=== PATIENT | male | born 1970 | race Caucasian/White ===

== ENCOUNTER 2016-04-15 15:27 | Outpatient (RCR) | payer BC | END 2016-05-29 10:27 | disposition home or self-care (01) | LOC: PT 15:27 | DX: S76.112D Strain of left quadriceps muscle, fascia and tendon, subsequent encounter (principal) ==

== ENCOUNTER → 2017-01-01 | Outpatient (CLI) | payer BC | LOC: PT 08:44 | DX: Z01.818 Encounter for other preprocedural examination (principal); M25.552 Pain in left hip ==

== ENCOUNTER 2017-03-19 08:30 | Outpatient (RCR) | payer BC | END 2017-04-06 | disposition home or self-care (01) | LOC: PT | DX: S76.012D Strain of muscle, fascia and tendon of left hip, subsequent encounter (principal); X58.XXXD Exposure to other specified factors, subsequent encounter ==

== ENCOUNTER → 2017-09-10 | Outpatient (CLI) | payer BC | LOC: RAD 09:25 | DX: M25.512 Pain in left shoulder (principal) ==

== ENCOUNTER → 2017-10-10 | Outpatient (CLI) | payer BC ==
[~2017-10-10] VITALS: Ht 177.8 cm; Wt 94.5 kg
[~2017-10-10] MED LIST: VENLAFAXINE HYD75 MG PO
[2017-10-10 09:30] LABS: HEMATOCRIT 47.1 % (42.0-52.0); HEMOGLOBIN 15.6 g/dL (13.5-18.0); MEAN CELL VOLUME 89 fl (78-100); MEAN CORPUSCULAR HEMOGLOBIN 30 pg (27-31); MEAN CORPUSCULAR HGB CONC 33 g/dL (33-37); MEAN PLATELET VOLUME 9.5 fl (7.4-10.4); PLATELET COUNT 202 K/mm3 (130-400); RED BLOOD COUNT 5.28 M/mm3 (4.20-5.60); RED CELL DISTRIBUTION WIDTH 13.2 % (11.5-14.5); WHITE BLOOD COUNT 12.1 K/mm3 (4.8-10.8)
[2017-10-10 09:40] VITALS: BP 131/74
[2017-10-10 09:43] LABS: ALBUMIN 4.6 g/dL (3.5-5.0); BUN/CREATININE RATIO 18.2 (6.0-26.0); CALCIUM 8.8 mg/dL (8.4-10.2); POTASSIUM 4.5 mmol/L (3.6-5.0); TOTAL PROTEIN 8.8 g/dL (6.3-8.2)
[2017-10-10 09:47] LABS: BAND 3 % (0-10); LYMPHOCYTE 8 % (20-51); MONOCYTE 2 % (3-10); NEUTROPHILS 87 % (42-75)
[2017-10-10 11:38] VITALS: BP 140/87
== END ==
LOC: AMSURD 09:12 → RAD 09:12
PROVIDERS: Physician Assistant
DX: N13.2 Hydronephrosis with renal and ureteral calculous obstruction (principal); R31.9 Hematuria, unspecified; E86.0 Dehydration
CPT/HCPCS: J1885; J7030

== ENCOUNTER → 2021-07-30 | Day surgery (SDC) | payer BC | END | disposition home or self-care (01) | LOC: MSO 09:52 | DX: Z12.11 Encounter for screening for malignant neoplasm of colon (principal); D12.2 Benign neoplasm of ascending colon; D12.5 Benign neoplasm of sigmoid colon | CPT/HCPCS: 00811; J2704; J7120 ==

== ENCOUNTER → 2021-08-01 | Outpatient (CLI) | payer BC | LOC: RAD 11:19 | DX: J18.1 Lobar pneumonia, unspecified organism (principal) ==